=== PATIENT | male | born 1980 | race Caucasian/White ===

== ENCOUNTER 2018-04-20 19:05 | Emergency (ER) | payer SELFPAY ==
--- NOTE | 2018-04-20 19:05 | DT_ITS ---
This patient was seen during an EMR downtime April 15, 2018 - April 22, 2018. This patient may have a combination of paper and electronic documentation or all paper documentation. All documentation is viewable within the e-chart portion of [employer] for each patient visit.
== END 2018-04-20 19:15 | disposition home or self-care (01) ==
LOC: ED 04-21 15:45
PROVIDERS: Emergency Provider Emergency Medicine
DX: Z00.00 Encounter for general adult medical examination without abnormal findings (principal); I10 Essential (primary) hypertension; Z79.899 Other long term (current) drug therapy
CPT/HCPCS: 99282

== ENCOUNTER 2018-06-15 22:47 | Emergency (ER) | payer SELFPAY ==
[2018-06-15 22:47] VITALS: BP 150/79; PULSE 87; RESP 99; TEMP 36.2; O2SAT 22; BMI 53.5
--- NOTE | 2018-06-15 23:13 | ED.DCSUM_ITS ---
- ER Visit Summary Date of Service: 06/15/18 Chief Complaint: [Left lower extremity swelling and pain] History of Present Illness: The patient is a 38 M [who presents the emergency department with swelling pain redness in his left lower extremity. He has had subjective fevers at home. He has had cellulitis several times in the right lower extremity and feels like it similar to that. He does have venous stasis with a few small ulcerations of his left lower extremity. He is not diabetic. There is been no injury has no chest pain or shortness of breath he has a history of hypertension but does not take anything for it] Physical Examination: [] WN WD NAD PERRL EOMI MMM NECK supple and nontender, no masses RRR no murmur rub or gallop, no peripheral edema, symmetric radial pulses CTAB no respiratory distress ABDOMEN is soft and nontender, normal bowel sounds, no distension, no rebound or guarding SKIN erythema of the anterior lower extremity from the distal portion to just below the knee there is warmth and mild tenderness there are 2 areas less than a dime size of ulceration open skin there is no purulent drainage or abscess subcutaneous emphysema he has strong symmetric DP pulses with brisk distal cap refill there are varicosities on the left lower extremity as well as the right. Alert and Oriented x3, CN II-XII in tact, no motor or sensory deficits, gait normal No lymphadenopathy Test Results: [] Emergency Department Course and Treatment: [Patient was given IV antibiotics in the emergency department. Screening labs show a mild leukopenia at 4.3. I did write him a prescription for an outpatient venous ultrasound because of the varicosities however I do believe this to be secondary to cellulitis. For that reason I did not give empiric Lovenox. He will be started on clindamycin for home. He was given careful precautions for which to return and invited to come to the emergency department for any concerns] Treatment Plan: [] Disposition: [Discharge] Impression: [Cellulitis left lower extremity] This note was generated with [employer] dictation software. It may contain incorrect words, spelling, and punctuation that were not noted in review of the chart prior to signing ED Disposition - Plan for ED Patient: Chief Complaint: Cellulitis Referrals: Care Physician,No Primary [Primary Care Provider] -
[2018-06-15 23:48] LABS: Absolute Lymphocyte Count 1.58 X10^3/ul (0.83-4.51); Absolute Neutrophil Count 2.2 X10^3/uL (2.0-7.7); Basophil# 0.01 X10^3/uL; Basophil% 0.2 % (0-1); Eosinophil# 0.12 X10^3/uL; Eosinophils% 2.8 % (0-5); Hematocrit 42.8 % (40-54); Hemoglobin 14.3 g/dl (13.0-16.5); Lymphocyte # 1.58 X10^3/ul (4.0); Lymphocyte % 36.6 % (19-41); Mean Corp Hgb Conc 33.4 g/gl (32-36); Mean Corpuscular Hgb 27.9 pg (27.0-32.0); Mean Corpuscular Volume 83.4 fL (80-94); Mean Platelet Vol. 9.8 fl (6.2-12.0); Monocyte% 9.3 % (0-10); Neutrophil # 2.21 X10^3/uL (2.7-7.7); Neutrophil % 51.1 % (47-70); Platelet Count 148 K/mm3 (150-450); RBC Distribution Width CV 13.8 % (11.6-14.6); RBC Distribution Width SD 42.4 fl (35.1-43.9); Red Blood Count 5.13 M/mm3 (4.6-6.2); White Blood Count 4.3 K/mm3 (4.4-11.0)
[2018-06-15 23:51] LABS: POSITIVE COUNT NO; POSITIVE DIFFERENTIAL NO; POSITIVE MORPHOLOGY NO
[2018-06-15 23:55] LABS: ALB/GLOB Ratio 0.6 RATIO (0.9-2.4); AST(SGOT) 28 U/L (15-37); Alanine Aminotransfer ALT/SGPT 29 U/L (16-61); Albumin, Serum 3.2 g/dL (3.2-5.0); Alkaline Phosphatase 75 U/L (45-117); Anion Gap 5 (5-15); BUN 11 mg/dL (7-18); BUN/Creat Ratio 10.4 RATIO (10-20); Calcium,Total 8.5 mg/dL (8.5-10.1); Chloride 108 mmol/L (98-107); Creatinine, Serum 1.06 mg/dL (0.70-1.30); EST Glomerular Filtration Rate 82 mL/min (>60); Est Glom Filt Rate - Afr Amer 100 mL/min (>60); Estimated Creatinine Clearance 101.68 ml/min; Globulin 5.2 g/dL (2.2-4.2); Glucose 107 mg/dL (74-106); Potassium 3.5 mmol/L (3.5-5.1); Protein, Total 8.4 g/dL (6.4-8.2); Sodium Level 141 mmol/L (136-145)
--- NOTE | 2018-06-16 00:38 | ED.DEP ---
ED Disposition - Plan for ED Patient: Chief Complaint: Cellulitis Instructions: Discharge Instructions for Cellulitis Prescriptions: Clindamycin [Cleocin] 450 mg PO 4X/DAY #120 capsule Referrals: Hammad Clark MD [STAFF PHYSICIAN] - 3-5 Days
[2018-06-16 00:49] VITALS: BP 146/82; PULSE 88; RESP 16; O2SAT 98
[2018-06-16 01:07] VITALS: BP 146/86; PULSE 87; RESP 16; O2SAT 98
== END 2018-06-16 01:08 | disposition home or self-care (01) ==
LOC: ED 23:09
PROVIDERS: Emergency Provider Emergency Medicine
DX: L03.116 Cellulitis of left lower limb (principal); I10 Essential (primary) hypertension
CPT/HCPCS: 80053; 85025; 96365; 99285; J7050

== ENCOUNTER 2018-09-27 22:42 | Emergency (ER) | payer SELFPAY ==
[2018-09-27 22:43] VITALS: BP 155/98; PULSE 86; RESP 20; TEMP 36.7; O2SAT 95; BMI 50.8
--- NOTE | 2018-09-27 22:57 | ED.DCSUM_ITS ---
- ER Visit Summary Date of Service: 09/27/18 Chief Complaint: Nausea and diarrhea History of Present Illness: The patient is a 38 M who presents with nausea and diarrhea. He states he really has not felt well for a couple of days. He reports nausea burping and diarrhea. He has had some relief with Pepto-Bismol. He notes his diarrhea is actually improving. He does still have a little bit of a headache. No fevers chest pain shortness of breath abdominal pain vomiting. Patient notes that a couple of days ago he drank some chocolate milk which she realized was 6 days past the expiration date and believes this may have been what caused his symptoms. Physical Examination: Afebrile vitals unremarkable Patient resting comfortably no distress Moist mucous membranes Heart regular rate and rhythm Lungs are clear Abdomen soft nontender nondistended Alert, no focal or lateralizing neurological deficits Test Results: Not indicated Emergency Department Course and Treatment: Patient is clinically well-appearing with normal vital signs and a benign physical examination. This may be related to the milk or possibly a viral syndrome. I do not believe any further diagnostic testing is necessary. The patient does admit that he is basically just here for a work note as he started a new job. He was given Zofran and Tylenol and discharged home Treatment Plan: [] Disposition: Discharge Impression: Diarrhea Nausea Headache This note was generated with [employer] dictation software. It may contain incorrect words, spelling, and punctuation that were not noted in review of the chart prior to signing ED Disposition - Plan for ED Patient: Chief Complaint: General Illness Referrals: Care Physician,No Primary [Primary Care Provider] -
--- NOTE | 2018-09-27 22:57 | ED.DEP ---
ED Disposition - Plan for ED Patient: Chief Complaint: General Illness Instructions: ED Diet Vomiting Diarrhea, ED Cephalgia Unspecified Referrals: Care Physician,No Primary [Primary Care Provider] -
[2018-09-27] MEDS: Acetaminophen 500 MG Tablet 1000 MG PO (23:23)
[2018-09-27] MEDS: Ondansetron ODT 4 MG Tablet PO (23:23)
[2018-09-27 23:25] VITALS: BP 142/91; PULSE 86; RESP 16; O2SAT 98
== END 2018-09-27 23:25 | disposition home or self-care (01) ==
LOC: ED 23:02
PROVIDERS: Emergency Provider Emergency Medicine
DX: R11.0 Nausea (principal); R19.7 Diarrhea, unspecified; R51 Headache
CPT/HCPCS: 99283